=== PATIENT | male | born 1990 | race Caucasian/White ===

== ENCOUNTER 2018-07-26 01:40 | Emergency (ER) | payer OTHER ==
[2018-07-26] MEDS ORDERED: NS 1,000 ML IV ONE ×2 (01:53→01:54)
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
[2018-07-26 02:06] LABS: PLATELET COUNT 265 10^3/uL (150-400)
[2018-07-26 05:32] VITALS: BP 134/74
--- NOTE | 2018-07-29 06:32 | CPEKG ---
Test Reason : OPEN Blood Pressure : / mmHG Vent. Rate : 061 BPM Atrial Rate : 060 BPM P-R Int : 145 ms QRS Dur : 089 ms QT Int : 417 ms P-R-T Axes : 045 048 032 degrees QTc Int : 420 ms Sinus rhythm Confirmed by Rik Field ([id number]) on 07/29/2018 6:31:12 AM Referred By: Rik Field Confirmed By:Rik Field
== END 2018-07-26 05:32 | disposition home or self-care (01) ==
DX: F10.920 Alcohol use, unspecified with intoxication, uncomplicated (principal); E86.9 Volume depletion, unspecified
CPT/HCPCS: 84484-ER; G0480